=== PATIENT | female | born 1985 | race Caucasian/White ===

== ENCOUNTER 2016-10-13 12:59 | Emergency (ER) | payer OTHER ==
[~2016-10-13 12:59] MED LIST: ALBUTEROL SULF8.5 G2 IH; ALBUTEROL17 GM; AMITRIPTYLINE H25 M1 PO; BACTRIM DS TAB1 EAC2 PO; CIPRO500 M1 PO; FIORICET 50-301 EACH PO; KEFLEX500 M4 PO; LORTAB 10 MG-3473 ML PO; MULTIVITAMINS1 EAC6 PO; NEXIUM40 MG PO; NO HOME MEDS; PEPCID COM1 TAB.CHEW; PREDNISONE10 MG PO; PRENATAL1 TAB; PRILOSEC40 M1 PO; PROTONIX20 M2 PO; PROTONIX40 M2 PO; PROVENTIL HFA6.7 GM; PYRIDIUM200 M2 PO; TOPAMAX25 M2 PO; TRAMADOL HCL50 M2 PO; ZOFRAN4 M2
[2016-10-13 13:43] LABS: URINE BILIRUBIN MODERATE (NEG); URINE BLOOD SMALL (NEG); URINE GLUCOSE (UA) NEGATIVE (NEG); URINE KETONE NEGATIVE (NEG); URINE LEUKOCYTE ESTERASE NEGATIVE (NEG); URINE NITRITE POSITIVE (NEG); URINE PH 6.5 (5.0-8.0); URINE PROTEIN SMALL (NEG); URINE SPECIFIC GRAVITY 1.015 (1.003-1.030)
[2016-10-13 13:44] LABS: URINE APPEARANCE CLEAR; URINE COLOR ORANGE
== END 2016-10-13 14:58 ==
LOC: EDMED 12:59
PROVIDERS: Emergency Medicine
DX: N12 Tubulo-interstitial nephritis, not specified as acute or chronic (principal); E86.0 Dehydration; Z90.49 Acquired absence of other specified parts of digestive tract; Z98.51 Tubal ligation status; Z87.891 Personal history of nicotine dependence
CPT/HCPCS: J0696; J1885; J7030